=== PATIENT | female | born 1970 | race Caucasian/White ===

== ENCOUNTER → 2019-03-21 07:32 | Outpatient (CLI) | payer OTHER, SELFPAY ==
[2019-03-21 07:50] LABS: RBC Urine None Seen (0-5/HPF)
[2019-03-21 08:23] LABS: Add Manual Diff / Slide Review NO; Basophils Absolute Auto 0 /uL (0-100); Basophils Percent Auto 0.7 % (0-2); Eosinophils Absolute Auto 100 /uL (0-450); Eosinophils Percent Auto 1.6 % (2-4); Hemoglobin 13.9 g/dL (12.0-16.0); Lymphocytes Absolute Auto 1400 /uL (1100-4500); Lymphocytes Percent Auto 34.8 % (25-40); Mean Corpuscular HGB Conc 34.7 % (30-36); Mean Corpuscular Hemoglobin 31.4 PG (26-34); Mean Corpuscular Volume 90.6 fL (80-100); Monocytes Absolute Auto 300 /uL (0-900); Monocytes Percent Auto 7.3 % (3-14); Neutrophils Absolute Auto 2200 /uL (1500-7000); Neutrophils Percent Auto 55.6 % (50-75); Platelet Count 236 X10^3/uL (150-400); Red Blood Cell Count 4.41 X10^6/uL (4.0-5.2); Red Cell Distribution Width 12.6 % (11.6-14.8)
[2019-03-21 08:26] LABS: Appearance Urine UA SL CLOUDY; Bilirubin Urine UA NEGATIVE (NEGATIVE); Color Urine UA YELLOW; Glucose Urine UA NEGATIVE (Negative); Ketones Urine UA NEGATIVE (NEGATIVE); Leukocyte Esterase Urine UA NEGATIVE (NEGATIVE); Nitrite Urine UA NEGATIVE (Negative); Occult Blood Urine UA NEGATIVE (Negative); Protein Urine UA NEGATIVE (Negative); Specific Gravity Urine UA 1.015 (1.000-1.035); Urobilinogen Urine UA 0.2 E.U./dL (0.2); pH Urine UA 7.5 (4.5-8.0)
[2019-03-21 08:42] LABS: Erythrocyte Sedimentation Rate 11 MM/HR (0-20)
[2019-03-21 08:48] LABS: Bacteria Urine Many (>30); Squamous Epithelial Cell Urine 10-30 /HPF (0-5/HPF); WBC Urine 1-5/HPF (0-5/HPF)
[2019-03-21 09:27] LABS: Vitamin D 25 Hydroxy (D3) 31.3 ng/mL (30.0-100.0)
[2019-03-21 09:45] LABS: HEMOLYSIS < 15 (0-50); Iron 166 ug/dL (37-170)
[2019-03-21 09:47] LABS: Alanine Aminotransferase 23 IU/L (9-52); Albumin 4.2 g/dL (3.5-5.0); Albumin Globulin Ratio 1.8 (1.0-2.8); Alkaline Phosphatase 56 U/L (38-126); Aspartate Aminotransferase 20 IU/L (14-36); Bilirubin Total 1.7 mg/dL (0.2-1.3); Blood Urea Nitrogen 12 mg/dL (7-17); Calcium 9.1 mg/dL (8.4-10.2); Carbon Dioxide 31 mmol/L (22-32); Chloride 101 mmol/L (98-107); Cholesterol 211 mg/dL (140-199); Estimated Glomerular Filt Rate > 60.0 mL/min (>60); Gamma Glutamyl Transpeptidase 14 U/L (12-43); Globulin 2.4 g/dL (1.7-4.1); Glucose 86 mg/dL (70-100); HDL Cholesterol 80 mg/dL (40-60); HEMOLYSIS < 15 (0-50); LDL Cholesterol Calculated 116 mg/dL (<100); Magnesium 2.1 mg/dL (1.6-2.3); Potassium 4.1 mmol/L (3.4-5.1); Sodium 138 mmol/L (137-145); Total Protein 6.6 g/dL (6.3-8.2); Triglycerides 75 mg/dL (35-150); Uric Acid 2.9 mg/dL (2.5-6.2)
[2019-03-21 09:56] LABS: Percent Iron Saturation 56 % (15-50); Total Iron Binding Capacity 298 ug/dL (265-497); Transferrin 234 mg/dL (206-381)
[2019-03-21 10:02] LABS: Free T3, Triiodothyronine Free 3.16 pg/mL (2.77-5.27); Free T4, Direct Thyroxine 1.07 ng/dL (0.78-2.19); Triiodothryronine T3 Uptake 31.5 % (23.5-40.5)
[2019-03-21 10:16] LABS: Thyroid Stimulating Hormone 0.91 uIU/mL (0.47-4.68)
[2019-03-21 10:18] LABS: Cortisol AM (Before 10AM) 7.44 ug/dL (4.46-22.7)
[2019-03-21 10:22] LABS: Ferritin 30.4 ng/mL (11.1-264)
== END ==
PROVIDERS: Visit Provider Acupuncturist
DX: Z00.00 Encounter for general adult medical examination without abnormal findings (principal)
CPT/HCPCS: 36415; 80053; 80061; 81001; 82248; 82306; 82533; 82728; 82977; 83001; 83002; 83036; 83540; 83550; 83735; 84439; 84443; 84479; 84481; 84550; 85025; 85651

== ENCOUNTER → 2019-04-18 22:07 | Outpatient (ROUT) | payer OTHER, SELFPAY ==
[2019-04-18 23:45] LABS: HIV 1 and 2 Antibody NEGATIVE (NEGATIVE); Hep C Virus Ab w/Reflex Quant NEGATIVE s/c (NEGATIVE)
[2019-04-21 14:13] LABS: RPR Screen Nonreactive (Nonreactive)
[2019-04-23 15:13] LABS: HSV 2 IGG AB < 0.90 index (< 0.90); HSV1IGG < 0.90 index (< 0.90)
== END ==
PROVIDERS: Visit Provider Acupuncturist
DX: Z00.00 Encounter for general adult medical examination without abnormal findings (principal)
CPT/HCPCS: 36415; 86592; 86695; 86696; 86703; 86803; 87491; 87591

== ENCOUNTER → 2020-10-29 14:50 | Outpatient (CLI) | payer OTHER, SELFPAY ==
--- NOTE | 2020-10-29 | DI.MG.S_ITS ---
BILATERAL DIGITAL SCREENING MAMMOGRAM 3D/2D WITH CAD: 10/29/2020 CLINICAL: Routine screening. Family history of breast cancer. Comparison is made to exams dated: 04/08/2014 mammogram and 05/19/2009 mammogram - outside. There are scattered fibroglandular elements in both breasts. Current study was also evaluated with a Computer Aided Detection (CAD) system. No significant masses, calcifications, or other findings are seen in either breast. There has been no significant interval change. IMPRESSION: NEGATIVE There is no mammographic evidence of malignancy. A 1 year screening mammogram is recommended. This exam was interpreted at Station ID: [id number]. NOTE: For mammograms, a report in lay terms will be sent to the patient. Approximately 15% of breast malignancies will not be visualized mammographically. In the management of a palpable breast mass, a negative mammogram must not discourage biopsy of a clinically suspicious lesion. Electronically Signed By: Christopher elmore/niraj:10/30/2020 07:58:06 letter sent: Normal Exam ACR BI-RADS Category 1: Negative [id number]
== END ==
PROVIDERS: PCP Registered Nurse; Referring Provider Naturopath; Visit Provider Naturopath
DX: Z12.31 Encounter for screening mammogram for malignant neoplasm of breast (principal); Z80.3 Family history of malignant neoplasm of breast
CPT/HCPCS: 77063; 77067

== ENCOUNTER → 2021-03-09 13:42 | Outpatient (CLI) | payer OTHER, SELFPAY ==
[2021-03-09] MEDS: COVID-19 VACC #1, MRNA(MOD) 100 MCG/0.5 ML VIAL IM (13:48)
== END ==
PROVIDERS: PCP Registered Nurse; Visit Provider Internal Medicine
DX: Z23 Encounter for immunization (principal)
CPT/HCPCS: 0011A; 91301

== ENCOUNTER → 2021-04-07 10:27 | Outpatient (CLI) | payer OTHER, SELFPAY ==
[2021-04-07] MEDS: COVID-19 VACC #2, MRNA(MOD) 100 MCG/0.5 ML VIAL IM (10:37)
== END ==
PROVIDERS: PCP Registered Nurse; Visit Provider Internal Medicine
DX: Z23 Encounter for immunization (principal)
CPT/HCPCS: 0012A; 91301

== ENCOUNTER 2022-06-15 09:07 | Day surgery (SDC) | payer OTHER, SELFPAY | END 2022-06-15 09:10 | disposition home or self-care (01) | PROVIDERS: PCP Naturopath; Referring Provider Internal Medicine Gastroenterology; Visit Provider Internal Medicine Gastroenterology | DX: R15.2 Fecal urgency (principal); R19.7 Diarrhea, unspecified; K64.8 Other hemorrhoids; Z53.09 Procedure and treatment not carried out because of other contraindication ==

== ENCOUNTER → 2023-11-24 12:19 | Outpatient (CLI) | payer OTHER, SELFPAY ==
--- NOTE | 2023-11-24 12:21 | DI.US.S_ITS ---
PROCEDURE: US PELVIC COMPLETE INDICATIONS: Postmenopausal bleeding TECHNIQUE: Real-time scanning was performed of the pelvic organs, with image documentation. Additional endovaginal scanning was necessary due to incomplete visualization of the adnexal and endometrial structures by transabdominal scanning. COMPARISON: None. FINDINGS: Uterus: Uterus is anteverted and normal in size at 8.4 x 3.5 x 5.1 cm. The myometrium is homogeneous. The endometrium measures 2.7 mm combined thickness. No uterine fibroids. Ovaries: The right ovary measures 1.4 x 2.1 x 1.1 cm, with a calculated ovarian volume of 1.6 cc. The left ovary measures 1.4 x 1.9 x 1.5 cm, with a calculated ovarian volume of 2.1 cc. The ovaries have a normal sonographic appearance. Less than 12 follicles can be seen in each ovary. No adnexal masses are seen. Other: No pathologic free abdominal or pelvic fluid. IMPRESSION: The endometrial echo complex is normal in thickness. No cause for patient's symptoms is identified. Unremarkable pelvic ultrasound. We strive to produce accurate, complete, and clear reports of imaging services. To assist us in improving patient care, this report was composed using standard report templates and voice recognition software. Therefore, it may contain abnormal punctuation, insertions and/or omissions. Occasional wrong-word or sound-alike substitutions may occur. Though we review the report and make efforts to correct it, we do recommend that the report be read carefully in proper context to recognize any text inaccuracies. Dictated by: Julio Duarte M.D. on 11/24/2023 at 16:28 Approved by: Julio Duarte M.D. on 11/24/2023 at 16:31
== END ==
PROVIDERS: PCP Nurse Practitioner; Referring Provider Nurse Practitioner; Visit Provider Nurse Practitioner
DX: N95.0 Postmenopausal bleeding (principal)
CPT/HCPCS: 76830; 76856

== ENCOUNTER → 2025-03-16 11:11 | Outpatient (CLI) | payer OTHER, SELFPAY | PROVIDERS: PCP Nurse Practitioner; Referring Provider Nurse Practitioner Family; Visit Provider Nurse Practitioner Family | DX: R30.0 Dysuria (principal) | CPT/HCPCS: 87077; 87086 ==

== ENCOUNTER → 2025-04-18 14:46 | Outpatient (CLI) | payer OTHER, SELFPAY ==
--- NOTE | 2025-04-18 14:47 | DI.MG.S_ITS ---
MM screening mammo BI: 04/18/2025. BI-RADS: 1 CLINICAL: 55-year old female for bilateral screening mammogram. Tyrer-Cuzick lifetime risk of 9.8%. No personal or first-degree family history of breast cancer. Current reported family history of breast cancer: maternal aunt and second maternal aunt. PRIOR EXAMS 10/29/2020. MAMMOGRAPHY TECHNIQUE: 2D and 3D (tomosynthesis) digital mammographic views obtained, with additional images as needed for full coverage. Current study was also evaluated with a Computer Aided Detection (CAD) system. DENSITY B. There are scattered areas of fibroglandular density. MAMMOGRAPHY FINDINGS Bilateral: No suspicious mass, asymmetry, microcalcification, or other abnormality seen. IMPRESSION: * No evidence of malignancy. RECOMMENDATIONS Bilateral * Annual screening mammography. OVERALL ASSESSMENT CATEGORY BI-RADS-1: Negative. The [employer] recommends annual screening mammography beginning at age 40 for women with average risk of breast cancer. ELECTRONICALLY SIGNED: Christopher Douglas M.D. on 04/18/2025 at 05:48:17 PM PT Interpreting Station ID: [id number]
== END ==
PROVIDERS: PCP Nurse Practitioner; Referring Provider Nurse Practitioner; Visit Provider Nurse Practitioner
DX: Z12.31 Encounter for screening mammogram for malignant neoplasm of breast (principal); Z80.3 Family history of malignant neoplasm of breast
CPT/HCPCS: 77063; 77067

== ENCOUNTER → 2025-08-08 09:20 | Outpatient (CLI) | payer OTHER, SELFPAY ==
--- NOTE | 2025-08-08 09:25 | DI.RAD.S_ITS ---
PROCEDURE: XR LUMBAR SPINE 2-3V INDICATIONS: BACK/LEG PAIN, TOE NUMBNESS TECHNIQUE: 3 views of the lumbar spine were acquired. COMPARISON: None. FINDINGS: Bones: 5 [id number] vertebrae are present. There is normal bony alignment. Mild multilevel disc height loss with adjacent endplate sclerosis and multilevel anterior osteophytosis. No vertebral body compression fractures. No suspicious bony lesions. Soft tissues: Overlying bowel gas pattern is normal. No suspicious soft tissue calcifications. IMPRESSION: Mild degenerative change of the lumbar spine without evidence of acute bony abnormality. Dictated by: Jimenez Dixon M.D. on 08/11/2025 at 5:48 Approved by: Jimenez Dixon M.D. on 08/11/2025 at 5:49
--- NOTE | 2025-08-08 09:25 | DI.RAD.S_ITS ---
PROCEDURE: XR FOOT RT MIN 3V INDICATIONS: BACK/LEG PAIN, TOE NUMBNESS TECHNIQUE: 3 views of the foot were acquired. COMPARISON: None. FINDINGS: Bones: No fractures or dislocations. No suspicious bony lesions. Plantar calcaneal enthesopathy. Soft tissues: No tibiotalar joint effusion. Achilles tendon appears normal. IMPRESSION: No acute bony abnormality. Dictated by: Jimenez Dixon M.D. on 08/11/2025 at 5:50 Approved by: Jimenez Dixon M.D. on 08/11/2025 at 5:51
--- NOTE | 2025-08-08 09:25 | DI.RAD.S_ITS ---
PROCEDURE: XR ANKLE LT MIN 3V INDICATIONS: BACK/LEG PAIN, TOE NUMBNESS TECHNIQUE: 3 views of the ankle were acquired. COMPARISON: None. FINDINGS: Bones: No acute fractures or dislocations. Old healed distal tibial diaphyseal fracture. Probable sequelae of remote trauma in the form of well corticated osseous fragments distally adjacent to the distal margin of the medial malleolus and fibula. Ankle mortise is normally aligned. No suspicious bony lesions. Soft tissues: No tibiotalar joint effusion. Achilles tendon appears normal. IMPRESSION: No acute bony abnormality or significant effusion. Dictated by: Jimenez Dixon M.D. on 08/11/2025 at 5:49 Approved by: Jimenez Dixon M.D. on 08/11/2025 at 5:50
== END ==
PROVIDERS: PCP Physician Assistant; Referring Provider Family Medicine; Visit Provider Family Medicine
DX: M47.26 Other spondylosis with radiculopathy, lumbar region (principal); M25.572 Pain in left ankle and joints of left foot; G57.61 Lesion of plantar nerve, right lower limb; G89.29 Other chronic pain
CPT/HCPCS: 72100; 73610; 73630